=== PATIENT | male | born 1960 | race Caucasian/White ===

== ENCOUNTER 2016-10-30 20:19 | Inpatient (IN) | payer OTHER ==
[2016-10-30 20:48] LABS: BASOPHIL 0.3 % (0-2); EOSINOPHIL 2.2 % (0-5); HCT 46.1 % (42.0-52.0); HGB 15.2 g/dl (13.2-18.0); LYMPHOCYTE 26.7 % (15-48); MCH 28.4 pg (25.0-31.0); MCV 86.2 fL (78.0-100.0); MPV 9.8 fL (6.0-9.5); NEUTROPHIL 60.8 % (41-80); PLT 296 K/uL (150-400); RBC 5.35 M/uL (4.70-6.00); RDW 13.8 % (11.5-14.0); WBC 10.7 K/uL (4.0-10.5)
[2016-10-30 20:53] LABS: INR 1.01 (0.9-1.2); PROTHROMBIN TIME 12.9 SECONDS (11.7-14.0); PTT 28.1 SECONDS (23.2-31.4)
[2016-10-30 20:57] LABS: CKMB 2.11 ng/mL (0.97-4.94); TROPONIN T < 0.010 ng/mL
[2016-10-30 20:59] LABS: ALBUMIN 4.3 g/dL (3.5-5.0); BILIRUBIN - TOTAL 0.2 mg/dL (0.1-1.0); GLOBULIN (CALCULATION) 2.4 g/dL (2.2-4.2); POTASSIUM 3.9 mmol/L (3.5-5.1); TOTAL PROTEIN 6.7 g/dL (6.4-8.3)
[2016-10-31 03:43] LABS: CKMB 10.34 ng/mL (0.97-4.94)
[2016-10-31 03:44] LABS: TROPONIN T 0.266 ng/mL
[2016-10-31 10:28] LABS: CKMB 9.34 ng/mL (0.97-4.94); TROPONIN T 0.233 ng/mL
== END 2016-10-31 13:15 | disposition other institution (70) | DRG 282 ==
LOC: FER 20:19 → FTCU 21:40
PROVIDERS: Emergency Medicine; Hospitalist; ADMIT Internal Medicine
DX: I21.4 Non-ST elevation (NSTEMI) myocardial infarction (principal); I10 Essential (primary) hypertension; Z86.73 Personal history of transient ischemic attack (TIA), and cerebral infarction without residual deficits; G89.29 Other chronic pain; Z91.041 Radiographic dye allergy status; F17.210 Nicotine dependence, cigarettes, uncomplicated; K21.9 Gastro-esophageal reflux disease without esophagitis; M10.9 Gout, unspecified; F41.9 Anxiety disorder, unspecified; I24.9 Acute ischemic heart disease, unspecified; M54.5 Low back pain; Z85.828 Personal history of other malignant neoplasm of skin
CPT/HCPCS: 36415; 71010; 80053; 80061; 82550; 82553; 84484; 85025; 85610; 85730; 93005